=== PATIENT | male | born 1970 | race Hispanic/Latino ===

== ENCOUNTER 2016-12-28 22:44 | Emergency (ER) | payer OTHER ==
[~2016-12-28] VITALS: Ht 162.6 cm; Wt 5.9 kg
[2016-12-28 22:50] VITALS: BP 116/76; PULSE 100; RESP 16; O2SAT 84
--- NOTE | 2016-12-28 23:51 | ED.REPORT ---
HPI-URI / Cough / Cold Date of Service Dec 28, 2016 ED Provider: Brian Olivas MD Patient is a 46 year old male who presents to the ED with flu-like symptoms for the past week. Patient reports associated myalgias, cough, and nasal congestion. Patient has not had a fever or sore throat. He has been taking Theraflu for his symptoms. The patient's fiance has also been sick recently with similar symptoms. Nursing Notes Stated Complaint: FEVER Chief Complaint: General Complaint Nursing Notes Reviewed: Yes Allergies: Coded Allergies: No Known Allergies (Unverified , 12/28/16) General Time Seen by MD: 23:50 Chief Complaint Other (flu-like symptoms) Hx Obtained From: Patient Arrived By: Walk-in Onset Occurred: 1 week ago Symptom Duration: Since onset Location: : Diffuse myalgia Quality: Painful Severity: Current: Mild Severity: Maximum: Moderate Recent Healthcare: No recent doctor visit, No recent hospitalization Similar Sx Previous: No Past Medical History Past Medical History none reported Past Surgical History none reported Smoking History Unknown if Ever Smoker Social History Other Social History: Good social support, Local resident Ambulatory Status Independent Review of Systems Constitutional: Denies: Fever Ears / Nose / Throat: Reports: Nasal congestion, Denies: Sore throat Respiratory: Reports: Non-productive cough, Denies: Shortness of breath Complete sys rev & neg: except as marked. Musculoskeletal: Reports: Myalgia Physical Exam Initial Vital Signs Vital Signs (First) Date Time Temp Pulse Resp B/P Pulse Ox O2 Delivery O2 Flow Rate FiO2 12/28/16 22:50 36.6 100 16 116/76 84 Room Air Initial VS: Reviewed, Vital signs normal Head / Eyes: Atraumatic, Normocephalic, PERRL Neck: Supple, Non-tender Cardiovascular: Regular rate & rhythm, Heart sounds normal Extremities: Vascular intact, Neuro intact Skin: Warm, Dry, No cyanosis Neurologic: Alert, Oriented, Nonfocal Psychiatric: Mood/affect normal, Behavior normal, Normal thought content General/Constitutional: Awake, Alert, No acute distress, Well appearing ENT: Airway patent, Mucous membranes moist, Pharynx NL Respiratory / Chest: Breath sounds NL, Breath sounds = bilat, No respiratory distress, No rales, No rhonchi, No wheezing Interpretation & Diagnostics Interpretation & Diagnostics: NEGATIVE FOR INFLUENZA TYPE A AND B Re-Eval/Medical Decision Med Decision/Clinical Course 46-year-old male with 4 days of respiratory illness. He is negative for influenza B. His girlfriend has influenza B. He is brought beyond the window of benefit from treatment. He does not appear to seriously ill and clinically does not have a pneumonia. Follow-up as needed for significant worsening. Source of Hx: Old records Re-Evaluation/Progress : Time of Eval: 00:10 Patient Status: Condition improved Re-Evaluation/Progress Note: Flu was negative. Patient understands and agrees with the plan to be discharged home. Discharge instructions and follow-up discussed. All questions were addressed. Return to the ED warnings given. Counseled Regarding: Diagnosis, Need for follow-up, When/why to return to ED Discharge & Departure Impression: Primary Impression: Influenza-like illness Disposition: Home Discharge Condition All VS Reviewed: Yes Condition: Stable Patient Instructions: Influenza (ED) Additional Instructions: Your test was negative for influenza, but you have a similar viral illness. Antibiotics will not help. TheraFlu is okay. Get plenty of rest. Drink plenty of fluids. Follow-up with your regular doctor as needed for persistent symptoms. Referrals: [facility] hospital Scribe Attestation Portions of this note were transcribed by Grace Mendes. I, Dr. Olivas personally performed the history, physical exam and medical decision-making; I reviewed and confirmed the accuracy of the information in the transcribed note. Signed by: Britt Gusman, 12/29/2016 0031 Brian Olivas MD Dec 28, 2016 23:51 Grace Mendes Dec 28, 2016 23:56
[2016-12-29 00:32] VITALS: BP 118/75; PULSE 78; RESP 18; O2SAT 99
== END 2016-12-29 00:45 | disposition home or self-care (01) ==
LOC: SED 22:44
DX: J11.1 Influenza due to unidentified influenza virus with other respiratory manifestations (principal)